=== PATIENT | male | born 1940 | race Caucasian/White ===

== ENCOUNTER → 2023-12-24 13:58 | Outpatient (REF) | payer MEDICARE, OTHER, SELFPAY | LOC: RCS 13:58 | PROVIDERS: ATTENDING PHYSICIAN Family Medicine | DX: R01.1 Cardiac murmur, unspecified (principal) | CPT/HCPCS: 93306 ==

== ENCOUNTER → 2024-08-04 17:58 | Outpatient (REF) | payer OTHER, SELFPAY | LOC: MRI 17:58 | PROVIDERS: ATTENDING PHYSICIAN Specialist; FAMILY PHYSICIAN Family Medicine; PRIMARYCARE PHYSICIAN Family Medicine | DX: G95.9 Disease of spinal cord, unspecified (principal); R26.81 Unsteadiness on feet | CPT/HCPCS: 70551; 72141 ==